=== PATIENT | male | born 1970 | race Caucasian/White ===

== ENCOUNTER 2017-05-29 12:27 | Emergency (ER) | payer SELFPAY ==
[2017-05-29] MEDS ORDERED: LOSARTAN POTASSIUM 25 MG TABLET PO ONE (13:23)
--- NOTE | 2017-05-29 13:25 | ER Document Report ---
ED Medical Screen (RME) - General Chief Complaint: Chest Pain Stated Complaint: CHEST PAIN Time Seen by Provider: 05/29/17 12:40 Mode of Arrival: Ambulatory Information source: Patient TRAVEL OUTSIDE OF THE [place] IN LAST 30 DAYS: No - HPI Patient complains to provider of: Elevated blood pressure, chest pain Notes: 05/29/17 13:24 Patient is a 47-year-old male who recently moved to the area, presenting to the emergency room today complaining of elevated blood pressure with chest pain that has been persistent for 3 days, he has a history of elevated blood pressure but his previous doctor took him off of medications and monitoring it, pain is in the left side of the chest - Related Data Allergies/Adverse Reactions: No Known Allergies Allergy (Verified 05/29/17 12:40) Past Medical History Renal/ Medical History: Denies: Hx Peritoneal Dialysis Physical Exam - Vital signs Vitals: Temp Pulse Resp BP Pulse Ox 98.5 F 98 16 173/109 H 97 05/29/17 12:38 05/29/17 12:38 05/29/17 12:38 05/29/17 12:38 05/29/17 12:38 Course - Vital Signs Vital signs: Temp Pulse Resp BP Pulse Ox 98.5 F 98 16 173/109 H 97 05/29/17 12:38 05/29/17 12:38 05/29/17 12:38 05/29/17 12:38 05/29/17 12:38
--- NOTE | 2017-05-29 14:13 | RADIOLOGY REPORT (SQ) ---
EXAM DESCRIPTION: CHEST PA/LAT COMPLETED DATE/TIME: 05/29/2017 1:42 pm REASON FOR STUDY: cp COMPARISON: None. EXAM PARAMETERS: NUMBER OF VIEWS: two views TECHNIQUE: Digital Frontal and Lateral radiographic views of the chest acquired. RADIATION DOSE: NA LIMITATIONS: none FINDINGS: LUNGS AND PLEURA: No opacities, masses or pneumothorax. No pleural effusion. MEDIASTINUM AND HILAR STRUCTURES: No masses or contour abnormalities. HEART AND VASCULAR STRUCTURES: Heart normal size. No evidence for failure. BONES: No acute findings. HARDWARE: None in the chest. OTHER: No other significant finding. IMPRESSION: NO SIGNIFICANT RADIOGRAPHIC FINDING IN THE CHEST. TECHNICAL DOCUMENTATION: JOB ID: [id number] [employer]- All Rights Reserved
[2017-05-29 14:24] LABS: ABSOLUTE BASOPHILS # (AUTO) 0.1 10^3/uL (0.0-0.2); ABSOLUTE EOSINOPHILS # (AUTO) 0.2 10^3/uL (0.0-0.6); ABSOLUTE LYMPHOCYTES (AUTO) 2.5 10^3/uL (0.5-4.7); ABSOLUTE MONOCYTES (AUTO) 0.8 10^3/uL (0.1-1.4); ABSOLUTE NEUT (AUTO) 5.4 10^3/uL (1.7-8.2); BASOPHILS % (AUTO) 0.7 % (0-2); EOSINOPHILS % (AUTO) 2.3 % (0-6); HEMATOCRIT 47.1 % (37.9-51.0); HEMOGLOBIN 15.9 g/dL (13.5-17.0); HGB HCT DIFFERENCE 0.6; LYMPHOCYTES % (AUTO) 28.2 % (13-45); MEAN CORPUSCULAR HEMOGLOBIN 28.9 pg (27.0-33.4); MEAN CORPUSCULAR HGB CONC 33.7 g/dL (32.0-36.0); MEAN CORPUSCULAR VOLUME 86 fl (80-97); MONOCYTES % (AUTO) 8.5 % (3-13); SEGMENTED NEUTROPHILS % (AUTO) 60.3 % (42-78)
[2017-05-29 14:48] LABS: ALANINE AMINOTRANSFERASE 37 U/L (21-72); ALBUMIN 4.5 g/dL (3.5-5.0); ALKALINE PHOSPHATASE 54 U/L (38-126); ANION GAP 12 (5-19); ASPARTATE AMINO TRANSFERASE 30 U/L (17-59); BILIRUBIN,DIRECT 0.4 mg/dL (0.0-0.4); BILIRUBIN,TOTAL 0.7 mg/dL (0.2-1.3); BLOOD UREA NITROGEN 13 mg/dL (7-20); CALCIUM 10.2 mg/dL (8.4-10.2); CARBON DIOXIDE 25 mmol/L (22-30); CHLORIDE 104 mmol/L (98-107); CREATININE RESULT 0.82 mg/dL (0.52-1.25); GLUCOSE 95 mg/dL (75-110); POTASSIUM 4.4 mmol/L (3.6-5.0); SODIUM 140.9 mmol/L (137-145); TOTAL PROTEIN 7.4 g/dL (6.3-8.2)
--- NOTE | 2017-05-29 15:17 | ER Document Report ---
ED General - General Mode of Arrival: Ambulatory Information source: Patient TRAVEL OUTSIDE OF THE [place] IN LAST 30 DAYS: No - HPI Onset/Duration: Intermittent Quality of pain: Sharp <PETR HERNANDEZ - Last Filed: 05/29/17 15:50> <AMANDA PICKENS - Last Filed: 05/30/17 00:32> - General Chief Complaint: Chest Pain Stated Complaint: CHEST PAIN Time Seen by Provider: 05/29/17 12:40 Notes: Patient is a 47 year old male that presents to the emergency department today with complaints of reproducible left sided chest wall pain. Patient states the pain is sharp and stabbing and it is exacerbated with breathing. 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 Patient states he used to be on 50mg of Losartan for his hypertension but he does not have a doctor to prescribe these meds now. Patient denies a history of CAD, cough, or fevers. (PETR HERNANDEZ) - Related Data Allergies/Adverse Reactions: No Known Allergies Allergy (Verified 05/29/17 12:40) Past Medical History - General Information source: Patient - Social History Smoking Status: Current Every Day Smoker Cigarette use (# per day): Yes Chew tobacco use (# tins/day): No Frequency of alcohol use: Occasional Drug Abuse: None Lives with: Family Family History: Reviewed & Not Pertinent - Past Medical History Cardiac Medical History: Reports: Hx Hypertension Surgical Hx: Negative <PETR HERNANDEZ - Last Filed: 05/29/17 15:50> Review of Systems - Review of Systems Constitutional: denies: Fever EENT: No symptoms reported Cardiovascular: See HPI, Chest pain - reproducible Respiratory: denies: Cough Gastrointestinal: No symptoms reported Genitourinary: No symptoms reported Male Genitourinary: No symptoms reported Musculoskeletal: No symptoms reported Skin: No symptoms reported Hematologic/Lymphatic: No symptoms reported Neurological/Psychological: No symptoms reported -: Yes All other systems reviewed and negative <PETR HERNANDEZ - Last Filed: 05/29/17 15:50> Physical Exam <PETR HERNANDEZ - Last Filed: 05/29/17 15:50> <AMANDA PICKENS - Last Filed: 05/30/17 00:32> - Vital signs Vitals: Temp Pulse Resp BP Pulse Ox 98.5 F 98 16 173/109 H 97 05/29/17 12:38 05/29/17 12:38 05/29/17 12:38 05/29/17 12:38 05/29/17 12:38 - Notes Notes: Physical Exam: General: Alert, appears well. HEENT: Normocephalic. Atraumatic. PERRL. Extraocular movements intact. Oropharynx clear. Neck: Supple. Non-tender. Respiratory: No respiratory distress. Clear and equal breath sounds bilaterally. Left sided reproducible anterior chest wall tenderness over costosternal joint. Cardiovascular: Regular rate and rhythm. Abdominal: Normal Inspection. Non-tender. No distension. Normal Bowel Sounds. Back: Non-tender. No deformity or step off. Extremities: Moves all four extremities. Upper extremities: Normal inspection. Normal ROM. Lower extremities: Normal inspection. No edema. Normal ROM. Neurological: Normal cognition. AAOx4. Normal speech. Psychological: Normal affect. Normal Mood. Skin: Warm. Dry. Normal color. (PETR HERNANDEZ) Course - Laboratory Result Diagrams: 05/29/17 14:00 05/29/17 14:00 <PETR HERNANDEZ - Last Filed: 05/29/17 15:50> - Laboratory Result Diagrams: 05/29/17 14:00 05/29/17 14:00 - Diagnostic Test Radiology reviewed: Reports reviewed - EKG Interpretation by Pa EKG shows normal: Sinus rhythm Rate: Normal Rhythm: NSR <AMANDA PICKENS - Last Filed: 05/30/17 00:32> - Re-evaluation Re-evalutation: 05/29/17 16:57 Patient is a 47-year-old male who comes in complaining of chest pain No acute findings on blood work or EKG. Chest pain is reproducible. Patient also has been out of his blood pressure medication which will be refilled. Also requesting list of primary's. Patient is otherwise stable for discharge as his pain is been going on for a few days and is reproducible. Return if any worsening or concerning symptoms. Stable for discharge. (AMANDA PICKENS) - Vital Signs Vital signs: Temp Pulse Resp BP Pulse Ox 98.5 F 81 18 148/89 H 97 05/29/17 12:38 05/29/17 15:49 05/29/17 15:49 05/29/17 15:49 05/29/17 15:49 Discharge <PETR HERNANDEZ - Last Filed: 05/29/17 15:50> <AMANDA PICKENS - Last Filed: 05/30/17 00:32> - Discharge Clinical Impression: Costochondritis, acute Condition: Stable Disposition: HOME, SELF-CARE Instructions: [facility], Chest Wall Pain ([facility]), Costochondritis ( [facility]), Family Physicians / Practices Additional Instructions: Please follow-up with a primary care doctor when you are able. Prescriptions: Losartan Potassium [Cozaar 25 mg Tablet] 25 mg PO DAILY #30 tablet Forms: Return to Work Scribe Attestation: 05/30/17 00:32 I personally performed the services described in the documentation, reviewed and edited the documentation which was dictated to the scribe in my presence, and it accurately records my words and actions. (AMANDA PICKENS) Scribe Documentation - Scribe Written by Scribe:: Bia Hidalgo, 05/29/2017 1640 acting as scribe for :: Sanam <PETR HERNANDEZ - Last Filed: 05/29/17 15:50>
[2017-05-29 15:50] VITALS: BP 148/89
--- NOTE | 2017-05-29 20:35 | EKG REPORT ---
SEVERITY:- ABNORMAL ECG - SINUS TACHYCARDIA LAD, CONSIDER LEFT ANTERIOR FASCICULAR BLOCK : Confirmed by: Grabiel Schmitz 29-May-2017 20:34:57
== END 2017-05-29 15:49 | disposition home or self-care (01) ==
LOC: ER 12:27
DX: M94.0 Chondrocostal junction syndrome [Tietze] (principal); R07.9 Chest pain, unspecified; R07.89 Other chest pain; Z79.899 Other long term (current) drug therapy; F17.210 Nicotine dependence, cigarettes, uncomplicated
CPT/HCPCS: 36415; 71020; 80053; 84484; 85025; 93005; 93010; 99285